=== PATIENT | male | born 1985 | race Two or more races ===

== ENCOUNTER 2018-07-15 00:56 | Emergency (ER) | payer SELFPAY ==
[~2018-07-15] VITALS: Ht 177.8 cm; Wt 70.3 kg
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
[2018-07-15 01:16] VITALS: BP 123/67
--- NOTE | 2018-07-15 01:26 | NUR ---
RADIOLOGY AT BEDSIDE FOR XRAY
[2018-07-15] MEDS ORDERED: HYDROCODONE/APAP 5/325MG 1 EACH TABLET ONE (01:28)
[2018-07-15] MEDS ORDERED: IBUPROFEN 600 MG TABLET PO ONE ×2 (01:28→01:30)
[2018-07-15] MEDS ORDERED: ONDANSETRON 4 MG TAB.RAPDIS ONE (01:28)
[2018-07-15] MEDS ORDERED: ONDANSETRON 4 MG TAB.RAPDIS SL ONE (01:30)
[2018-07-15] MEDS ORDERED: HYDROCODONE/APAP 5/325MG 1 EACH TABLET PO ONE (01:30)
--- NOTE | 2018-07-15 02:25 | NUR ---
Patient is resting comfortably in bed with eyes closed. Easily aroused. VSS
--- NOTE | 2018-07-15 04:42 | NUR ---
Patient discharged to home in stable condition. Written and verbal after care instructions given. Patient verbalizes understanding of instruction.
== END 2018-07-15 05:22 | disposition home or self-care (01) ==
LOC: ER 01:00
DX: M25.562 Pain in left knee (principal); J45.909 Unspecified asthma, uncomplicated; W18.39XA Other fall on same level, initial encounter; Y93.02 Activity, running; Y92.89 Other specified places as the place of occurrence of the external cause; Y99.8 Other external cause status
CPT/HCPCS: 73564; 99283; A4606; Q0162